=== PATIENT | male | born 1955 | race Caucasian/White ===

== ENCOUNTER 2018-04-15 19:01 | Emergency (ER) | payer OTHER ==
[~2018-04-15] VITALS: Ht 177.8 cm; Wt 165.6 kg
[~2018-04-15 19:01] MED LIST: CYCLOBENZAPRINE5 MG PO; GLIPIZIDE ER10 MG PO; GLUCOPHAGE XR500 MG PO; LANTUS SOL100 UNIT/1 SUBQ; LISINOPRIL-HCT1 EACH PO; NEXIUM40 MG PO; NORCO 5-325 TA1 EACH PO; ROSUVASTATIN CAL5 MG PO; TRULICITY0.75 MG/0. SQ; VITAMIN D 5050000 I1 PO
[2018-04-15 21:02] VITALS: BP 124/65
== END 2018-04-15 21:03 | disposition home or self-care (01) ==
LOC: ER 19:01
DX: S71.112A Laceration without foreign body, left thigh, initial encounter (principal); I83.892 Varicose veins of left lower extremity with other complications; E78.00 Pure hypercholesterolemia, unspecified; I10 Essential (primary) hypertension; E11.9 Type 2 diabetes mellitus without complications; X58.XXXA Exposure to other specified factors, initial encounter; Y92.89 Other specified places as the place of occurrence of the external cause; Y93.89 Activity, other specified; Y99.8 Other external cause status

== ENCOUNTER 2020-12-20 14:37 | Emergency (ER) | payer OTHER ==
[~2020-12-20] VITALS: Ht 182.9 cm; Wt 163.3 kg
[2020-12-20 14:48] VITALS: BP 154/75
[2020-12-20] MEDS ORDERED: CEPHALEXIN500 MG PO (14:59)
[2020-12-20] MEDS ORDERED: PREDNISONE50 MG PO (14:59)
== END 2020-12-20 15:00 | disposition home or self-care (01) ==
LOC: ER 14:37
DX: L03.113 Cellulitis of right upper limb (principal); I10 Essential (primary) hypertension; E78.00 Pure hypercholesterolemia, unspecified; E11.9 Type 2 diabetes mellitus without complications; Z79.891 Long term (current) use of opiate analgesic; Z79.4 Long term (current) use of insulin; Z79.899 Other long term (current) drug therapy